=== PATIENT | female | born 1935 | race Asian ===

== ENCOUNTER 2016-08-01 15:15 | Emergency (ER) | payer MEDICARE, OTHER ==
[~2016-08-01] VITALS: Ht 157.5 cm; Wt 59.1 kg
[2016-08-01 15:24] VITALS: Ht 157.5 cm; Wt 59.1 kg
[2016-08-01] MEDS ORDERED: LORAZEPAM 2 MG INJ IV ONE (15:30)
[2016-08-01 15:32] LABS: BASOPHIL # 0.1 10^3/ul (0.0-0.1); BASOPHILS % 0.8 % (0.0-2.0); CONDITION 1; EOSINOPHILS # 0.6 10^3/ul (0.0-0.5); EOSINOPHILS % 4.8 % (0.0-7.0); HEMATOCRIT 44.3 % (37.0-47.0); HEMOGLOBIN 14.4 g/dl (12.0-16.0); LYMPHOCYTES # 4.7 10^3/ul (0.8-2.9); LYMPHOCYTES % 36.1 % (15.0-51.0); MEAN CORPUSCULAR HEMOGLOBIN 30.5 pg (29.0-33.0); MEAN CORPUSCULAR HGB CONC 32.6 g/dl (32.0-37.0); MEAN CORPUSCULAR VOLUME 93.6 fl (82.0-101.0); MEAN PLATELET VOLUME 8.6 fl (7.4-10.4); MONOCYTE # 0.8 10^3/ul (0.3-0.9); MONOCYTES % 6.1 % (0.0-11.0); NEUTROPHIL # 6.7 10^3/ul (1.6-7.5); NEUTROPHILS % 52.2 % (39.0-77.0); PLATELET COUNT 243 10^3/UL (140-440); RED BLOOD COUNT 4.73 10^6/ul (4.20-5.40); RED CELL DISTRIBUTION WIDTH 13.2 % (11.5-14.5); UNCORRECTED WBC 12.9 10^3/ul (4.8-10.8); WHITE BLOOD COUNT 12.9 10^3/ul (4.8-10.8)
[2016-08-01 15:36] LABS: POTASSIUM 3.5 mmol/L (3.5-5.1)
[2016-08-01 15:38] LABS: CREATININE 1.49 mg/dl (0.44-1.00)
[2016-08-01 15:39] LABS: CALCIUM 9.1 mg/dl (8.4-10.2)
[2016-08-01 15:43] LABS: INR 0.95; PARTIAL THROMBOPLASTIN TIME 27.1 Sec (25.0-35.0); PROTIME 12.7 Sec (12.2-14.2)
--- NOTE | 2016-08-01 15:47 | RADRPT ---
AMENDMENT: 08/01/2016 3:48:50 PM Anuj Deleon M.D Voice recognition correction: The second line of report refers to left acute MCA territory ischemic infarct. PROCEDURE: CT Brain without contrast. CLINICAL INDICATION: Code stroke TECHNIQUE: A multiplanar CT of the brain was performed on a CT scanner utilizing axial imaging fro m the skull base through the vertex without IV contrast. The CTDIvol is 43.76 mGy and the DLP is 70 2.64 mGycm. One or more of the following dose reduction techniques were utilized: Automated exposu re control, adjustment of the mA and/or kV according to patient size, use of iterative reconstructio n technique. COMPARISON: None FINDINGS: No evidence of intracranial hemorrhage or abnormal extra-axial fluid collection. There is subtle indistinctness of the insular cortex as well as portions of the left frontal lobe wi th loss of harden-white differentiation compatible with underlying acute and see 80 territory ischemic infarct.. Subtle left to right midline shift of 3 mm. The right cerebral hemisphere is unremarkab le. Physiologic basal ganglia calcifications bilaterally. The ventricles and subarachnoid spaces a re otherwise age appropriate size. The posterior fossa contents, brainstem, craniocervical junction, orbits, pituitary axis, paranasal sinuses, mastoid air cells, and calvarium are unremarkable. IMPRESSION: 1. No intracranial hemorrhage . 2. Loss of harden-white differentiation involving the left insular cortex and frontal lobe compatible with MCA territory ischemic infarct. 3. Early ischemic injury may be occult to CT imaging and diffusion weighted MRI may be considered as clinically warranted. 4. Results were report as a Code stroke and discussed with Vimal Guerra 08/01/2016 3:45:31 PM . RPTAT:AAJJ Physician Genoveva Date Time Electronically viewed and signed by Physician Genoveva on 08/01/2016 15:48 ADRIANA/
--- NOTE | 2016-08-01 15:50 | RADRPT ---
PROCEDURE: XR Chest. CLINICAL INDICATION: Possible stroke TECHNIQUE: Single AP portable chest COMPARISON: None. FINDINGS: The cardiac silhouette is enlarged. . Marked vascular congestion and patchy bilateral upper lobe an d left perihilar air space disease suggesting pulmonary edema. Superimposed infectious process and pneumonia cannot be excluded. No pleural effusion. Atherosclerotic calcification of the aorta. N o pneumothorax. The osseous structures and soft tissues are unremarkable. IMPRESSION: Cardiomegaly and vascular congestion. Patchy bilateral upper lobe and left perihilar air space opaci ties. Superimposed pneumonia cannot be excluded. RPTAT:AAJJ César Deleon Physician Date Time Electronically viewed and signed by Physician Genoveva on 08/01/2016 15:50 ADRIANA/
[2016-08-01 15:51] LABS: TROPONIN-I 0.02 ng/ml (0.00-0.12)
[2016-08-01] MEDS ORDERED: SOD CHLORIDE 0.9% 50 ML IV ONE (16:00)
[2016-08-01] MEDS ORDERED: ALTEPLASE (tPA) 1 MG/ML BOLUS SYG IV* ONE (16:00)
[2016-08-01] MEDS ORDERED: ASPIRIN 300 MG SUPP PR ONE (16:00)
[2016-08-01] MEDS ORDERED: ALTEPLASE 100 MG INJ IV* ONE (16:00)
--- NOTE | 2016-08-01 16:29 | ERA ---
ER Documentation Chief Complaint Date/Time DATE: 08/01/16 TIME: 16:25 Chief Complaint ALOC with R sided deficiets HPI Patient is a 80-year-old female who presents altered. Please note the history and physical exam is limited secondary to patient's mental status. The patient was brought in by ambulance. The patient was opening and closing her mouth persistently and had right-sided weakness of her right upper and right lower extremity. The symptoms started 30 minutes prior to arrival at 2:20 PM. This was her last known well time. She fell in the bathroom. Upon review of old medical records this is the patient's first visit to the ER. ROS All systems reviewed and are negative except as per history of present illness. PMhx/Soc Medical and Surgical Hx: pt denies Medical Hx, pt denies Surgical Hx History of Surgery: No Hx Neurological Disorder: Yes (TIA) Hx Respiratory Disorders: No Hx Cardiac Disorders: Yes (htn, high cholesterol) Hx Psychiatric Problems: Yes (anxiety) Hx Miscellaneous Medical Probl: No Hx Alcohol Use: No (unkn) Hx Substance Use: No (unkn) Hx Tobacco Use: No (unkn) Smoking Status: Unknown if ever smoked FmHx Unable to obtain Physical Exam Vitals Vital Signs Date Time Temp Pulse Resp B/P Pulse Ox O2 Delivery O2 Flow Rate FiO2 08/01/16 16:16 100 20 137/65 96 08/01/16 15:36 Non Rebreather 15 08/01/16 15:24 95.4 110 22 159/88 94 Physical Exam Const: Not following commands Head: Atraumatic Eyes: Normal Conjunctiva ENT: Normal External Ears, Nose and Mouth. Neck: Full range of motion..~ No meningismus. Resp: Clear to auscultation bilaterally Cardio: Regular rate and rhythm, no murmurs Abd: Soft, non tender, non distended. Normal bowel sounds Skin: No petechiae or rashes Back: No midline or flank tenderness Ext: No cyanosis, or edema Neur: Eyes closed, opening and closing mouth persistently, right upper and lower extremity flaccid paralysis without response to pain Result Diagram: 08/01/16 1520 08/01/16 1520 Results 24 hrs Laboratory Tests Test 08/01/16 15:20 08/01/16 15:51 Activated Partial Thromboplast Time 27.1Sec Anion Gap 27 Basophils # 0.110^3/ul Basophils % 0.8% Blood Urea Nitrogen 18mg/dl Calcium Level 9.1mg/dl Carbon Dioxide Level 19mmol/L Chloride Level 101mmol/L Creatinine 1.49mg/dl Eosinophils # 0.610^3/ul Eosinophils % 4.8% Glucose Level 310mg/dl Hematocrit 44.3% Hemoglobin 14.4g/dl Hemoglobin A1c 6.5% INR International Normalized Ratio 0.95 Lymphocytes # 4.710^3/ul Lymphocytes % 36.1% Mean Corpuscular Hemoglobin 30.5pg Mean Corpuscular Hemoglobin Concent 32.6g/dl Mean Corpuscular Volume 93.6fl Mean Platelet Volume 8.6fl Monocytes # 0.810^3/ul Monocytes % 6.1% Neutrophils # 6.710^3/ul Neutrophils % 52.2% Nucleated Red Blood Cells # 0.010^3/ul Nucleated Red Blood Cells % 0.0/100WBC Platelet Count 20044^3/UL Potassium Level 3.5mmol/L Prothrombin Time 12.7Sec Prothrombin Time Ratio 1.0 Red Blood Count 4.7310^6/ul Red Cell Distribution Width 13.2% Sodium Level 143mmol/L Troponin I 0.020ng/ml White Blood Count 12.910^3/ul Bedside Glucose 234mg/dL Current Medications Medications (Trade) Dose Ordered Sig/Girish Route PRN Reason Start Time Stop Time Status Last Admin Dose Admin Lorazepam (Ativan) 0.5 mg ONCE ONCE IV 08/01/16 15:30 08/01/16 15:31 DC 08/01/16 15:54 Aspirin (Aspirin) 300 mg ONCE ONCE NC 08/01/16 16:00 08/01/16 16:01 DC 08/01/16 15:54 Alteplase, Recombinant (Activase) 5.3 mg BOLUS OVER 1 MIN ONCE IV* 08/01/16 16:00 08/01/16 16:01 DC 08/01/16 16:15 Alteplase, Recombinant 47.9 mg 47.9 mg ISCHEMIC STROKE ONCE IV* 08/01/16 16:00 08/01/16 16:01 DC 08/01/16 16:16 Sodium Chloride (NS) 50 ml @ 0 mls/hr FLUSH AFTER TPA ONCE IV 08/01/16 16:00 08/01/16 16:01 DC 08/01/16 16:16 Procedures/MDM EKG read by me: Rate/Rhythm: First-degree AV block at a rate of 98 Intervals: Prolonged NC interval Impression: Degree AV block without evidence of ischemia CT head shows acute MCA stroke per radiology. Patient is a 80-year-old female presents as a potential stroke. A code stroke was called at 15:16 after evaluation. I spoke with the tele-neurologist at 15: 36. She performed her evaluation and at 15:53 I spoke with her again and she recommended TPA and transfer for interventional procedure. I called [facility] transfer line and spoke with Dr. Miranda from [facility] at 15:55 who accepted the patient in transfer. A critical care ambulance is being sent. The patient was given rectal aspirin and had TPA ordered at 15:53 once I spoke with the tele- neurologist. She has an acute stroke. I doubt intracranial bleed or mass. I doubt meningitis. The patient will need transfer for potential mechanical retrieval of the clot or intra-arterial TPA. This will be a higher level of care transfer as we do not have these abilities at [facility]. The patient had a bedside swallow evaluation performed as well as NIH stroke scale by nursing. Critical Care: Time: 45 minutes excluding all billable procedures. Treatments/Evaluations: Close monitoring and treatment of unstable vital signs, cardiorespiratory, and neurologic status, while maintaining tight balance of fluid, respiratory, and cardiac interventions. Departure Diagnosis: Primary Impression: Acute ischemic stroke Additional Impression: Altered level of consciousness Condition: Critical NANDO MILES MD Aug 01, 2016 16:29
[2016-08-01] MEDS ORDERED: IBAN150T7 PO (16:42)
[2016-08-01] MEDS ORDERED: OLME1TAB5 PO (16:45)
[2016-08-01] MEDS ORDERED: METO-429 PO (16:48)
[2016-08-01] MEDS ORDERED: ATOR10TA65 PO (16:48)
[2016-08-01] MEDS ORDERED: OLME1TAB35 PO (16:48)
[2016-08-01] MEDS ORDERED: BENA40TA41 PO (16:49)
[2016-08-01] MEDS ORDERED: ASPI-664 PO (16:49)
--- NOTE | 2016-08-01 16:49 | CONS ---
DATE OF ADMISSION: 08/01/2016 DATE OF CONSULTATION: 08/01/2016 REASON FOR CONSULTATION: Right-sided weakness. HISTORY OF PRESENT ILLNESS: This is a 72-year-old woman with a history of and TIAs in the pas t. The history is obtained from the patient's granddaughter, who is her motor tune up specialist as well as her ad ult son who were present at the bedside. The patient was in her usual state of health, able to walk and talk normally and was witnessed to go to take her shower at 2:20 this afternoon. Sometime afte r that, the door was locked and she was moaning. Her son pushed in the door and found her on the gr ound. She was brought in by ambulance with altered mental status and right-sided weakness. She was desatting in the ER to 77% on room air and was placed on nonrebreather mask. Her CT head is negati ve per local radiologist read for any acute intracranial hemorrhage; however, there is concern for a left MCA stroke. On examination, her blood pressure is currently 159/88, blood glucose is 234, heart rate 96. She is obtunded and not following any commands. She is mute and no words were spoken. She has a left fou rth gaze preference and right face, arm and leg dense hemiplegia. Exclusion criteria was reviewed with the family. Risks and benefits of TPA were reviewed with the derek carranza and the family agrees to TPA. PLAN: A 72-year-old woman presents with a left MCA syndrome. Plan for stat IV tissue plasminogen a ctivator followed by thrombectomy candidacy evaluation. 1. Stat IV tissue plasminogen activator. 2. Evaluate for thrombectomy with stat CT angiogram either at local institution or transferred for higher level of care. Systolic blood pressure goal less than 100 to 180. Statin 80 mg if patient i s able to swallow, which is unlikely. 3. She will likely need intubation prior to transfer given her poor mental status at this time. Fo r questions or concerns, please call my answering service or my cell phone directly at [phone] . Dictated By: IRVING LANDERS/NTS Conf#: [id number] DID#: [id number]
[2016-08-01 16:50] VITALS: BP 117/68; PULSE 98; RESP 21; TEMP 96.6
[2016-08-01] MEDS ORDERED: BENICAR HCTZ PO (16:55)
== END 2016-08-01 16:50 | disposition short-term general hospital (02) ==
LOC: E/R 15:15
DX: I63.9 Cerebral infarction, unspecified (principal); R40.2212 Coma scale, best verbal response, none, at arrival to emergency department; I10 Essential (primary) hypertension; R40.2352 Coma scale, best motor response, localizes pain, at arrival to emergency department; R40.2112 Coma scale, eyes open, never, at arrival to emergency department
CPT/HCPCS: 37195; 70450; 71010; 80048; 82962; 83036; 84484; 85025; 85610; 85730; 93005; 96374; 99291; J2060; J2997